=== PATIENT | female | born 1950 | race Caucasian/White ===

== ENCOUNTER 2016-11-16 04:48 | Inpatient (IN) | payer OTHER, MEDICARE ==
[~2016-11-16] VITALS: Ht 157.5 cm; Wt 77.8 kg
[2016-11-16] VITALS (11 sets, daily range): BP systolic 93–189; BP diastolic 51–89; PULSE 87–130; RESP 18–24; TEMP 98.3–103.1; O2SAT 89–100
[~2016-11-16 04:48] MED LIST: BENA25TA8 PO; CIME800T4 PO; CLON.5 PO; CYCL-36 PO; FISH120014 PO; FURO1TAB93 PO; KELP100T PO; LEVO112T2 PO; PRAV40TA2 PO; PRIL40CA PO; VITA500015 PO; VITA80005 PO
[2016-11-16] MEDS ORDERED: ACETAMINOPHEN 325 MG TAB PO ONE (05:30)
[2016-11-16] MEDS ORDERED: SODIUM CHLOR 0.9% 1000 ML INJ 1,000 ML IV ONE ×2 (05:30→07:00)
[2016-11-16] MEDS ORDERED: RESP: ALBUTEROL 2.5 MG/IPRATROPIUM 0.5 MG NEB (SCH) NEB ONE (05:45)
[2016-11-16] MEDS ORDERED: ONDANSETRON HCL 4 MG/2 ML VIAL IV ONE (05:45)
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
[2016-11-16] MEDS ORDERED: AZITHROMYCIN INJ 500 MG in SODIUM CHLOR 0.9% 250 ML INJ 250 ML IV ONE (06:00)
[2016-11-16] MEDS ORDERED: cefTRIAXone INJ 2,000 MG in SODIUM CHLORIDE 0.9% INJ 100 ML IV ONE (06:00)
--- NOTE | 2016-11-16 06:01 | RADRPT ---
EXAM DATE/TIME: 11/16/2016 05:32 [facility] COMPARISON: No previous studies available for comparison. INDICATIONS : Fever, cough. MEDICAL HISTORY : None. SURGICAL HISTORY : None. ENCOUNTER: Initial ACUITY: 2 days PAIN SCORE: Non-responsive. LOCATION: Bilateral chest FINDINGS: There is diffuse airspace process in right lung with slight perivascular process on the left. Heart a nd mediastinum are unremarkable for technique. CONCLUSION: Bilateral parenchymal process worse on the right and pulmonary edema and/or pneumonia should both be entertained. Cici Bradford MD on November 16, 2016 at 5:59 Board Certified Radiologist. This report was verified electronically.
[2016-11-16 06:20] LABS: AUTOMATED NEUTROPHIL # 7.8 TH/MM3 (1.8-7.7); BASOPHIL % 0.2 % (0.0-2.0); EOSINOPHIL # 0.2 TH/MM3 (0-0.4); EOSINOPHIL % 2.4 % (0.0-4.0); HEMATOCRIT 34.5 % (35.0-46.0); HEMO FLAGS DIFF FINAL; LYMPH % 11.8 % (9.0-44.0); LYMPHOCYTE # 1.1 TH/MM3 (1.0-4.8); MEAN CELL VOLUME 63.8 FL (80.0-100.0); MEAN CORPUSCULAR HEMOGLOBIN 20.2 PG (27.0-34.0); MEAN CORPUSCULAR HGB CONC 31.7 % (32.0-36.0); MONO % 3.5 % (0.0-8.0); NEUT % 82.1 % (16.0-70.0); PLATELET COUNT 272 TH/MM3 (150-450); RED BLOOD COUNT 5.41 MIL/MM3 (4.00-5.30); RED CELL DISTRIBUTION WIDTH 15.6 % (11.6-17.2); WHITE BLOOD COUNT 9.5 TH/MM3 (4.0-11.0)
--- NOTE | 2016-11-16 06:40 | RADRPT ---
EXAM DATE/TIME: 11/16/2016 06:31 [facility] COMPARISON: No previous studies available for comparison. INDICATIONS : Fever and left sided head pain. RADIATION DOSE: 33.12 CTDIvol (mGy) MEDICAL HISTORY : Hypertension. SURGICAL HISTORY : Cholecystectomy. Hysterectomy. ENCOUNTER: Initial ACUITY: 1 day PAIN SCALE: 5/10 LOCATION: Left cranial TECHNIQUE: Multiple contiguous axial images were obtained of the head. Using automated exposure control and adj ustment of the mA and/or kV according to patient size, radiation dose was kept as low as reasonably a chievable to obtain optimal diagnostic quality images. FINDINGS: There is no evidence for intracranial hemorrhage, mass effect, mass lesions, edema, or extra-axial fl uid collections. The visualized bony structures appear intact. The ventricles are normal size for t he patient's age. There are no signs of acute infarction for technique. CONCLUSION: Unremarkable study. Cici Bradford MD on November 16, 2016 at 6:38 Board Certified Radiologist. This report was verified electronically.
[2016-11-16 06:50] LABS: ALT (GPT) 28 U/L (10-53); ANION GAP 9 MEQ/L (5-15); AST (GOT) 34 U/L (15-37); BICARBONATE 27.3 MEQ/L (21.0-32.0); BLOOD UREA NITROGEN 26 MG/DL (7-18); CHLORIDE 108 MEQ/L (98-107); GLOMERULAR FILTRATION RATE 60 ML/MIN (>89); MAGNESIUM 1.8 MG/DL (1.5-2.5); POTASSIUM 4.1 MEQ/L (3.5-5.1); SODIUM (NA) 144 MEQ/L (136-145)
[2016-11-16 06:52] LABS: ALKALINE PHOSPHATASE 51 U/L (45-117); TOTAL BILIRUBIN ADULT 0.7 MG/DL (0.2-1.0)
[2016-11-16 06:52] LABS: BACTERIA, URINE RARE /hpf; BLOOD, URINE NEG (NEG); GLUCOSE,URINE NEG (NEG); HYALINE CAST, URINE 4 /lpf (RARE); KETONE, URINE NEG (NEG); MUCUS URINE FEW /lpf (OCC); NITRITE,URINE NEG (NEG); PH, URINE 5.5 (5.0-8.5); URINE COLOR YELLOW (YELLW/STRAW)
[2016-11-16 06:53] LABS: COMMENT (UR) CULT NOT INDICATED; CULTURE IF INDICATED CULT NOT INDICATED
[2016-11-16] MEDS ORDERED: CYCL1TAB29 PO (06:59)
[2016-11-16] MEDS ORDERED: CLON.5 PO (06:59)
[2016-11-16] MEDS ORDERED: PRIL20CA9 PO (06:59)
[2016-11-16] MEDS ORDERED: LEVO125T4 PO (06:59)
[2016-11-16] MEDS ORDERED: PRAV40TA2 PO (06:59)
[2016-11-16] MEDS ORDERED: CIME200T23 PO (06:59)
[2016-11-16] MEDS ORDERED: VITA80005 PO (06:59)
[2016-11-16] MEDS ORDERED: CHOL50008 PO (06:59)
[2016-11-16] MEDS ORDERED: SODIUM CHLOR 0.9% 250 ML INJ 250 ML IV ONE (07:00)
[2016-11-16 07:23] LABS: CREATINE KINASE 114 U/L (26-192)
[2016-11-16 07:36] LABS: CKMB 4.3 NG/ML (0.5-3.6)
[2016-11-16 08:13] LABS: LACTIC ACID GHOST NOT REPORTABLE
[2016-11-16] MEDS ORDERED: NALOXONE HCL 0.4 MG/ML AMP IV PRN (08:15)
[2016-11-16] MEDS ORDERED: SODIUM CHLORIDE 0.9% FLUSH 10 ML FLUSH IV FLUSH PRN (08:15)
[2016-11-16] MEDS ORDERED: ACETAMINOPHEN 325 MG TAB PO PRN (08:15)
[2016-11-16] MEDS ORDERED: VITAMIN A 8000 UNIT PO SCH (09:00)
[2016-11-16] MEDS: SODIUM CHLORIDE 0.9% FLUSH 10 ML FLUSH IV FLUSH SCH ×2 (09:00→21:36)
--- NOTE | 2016-11-16 11:14 | HHI.HP ---
HPI Service [facility] Primary Care Physician Unknown Admission Diagnosis Pneumonia, Sepsis Diagnoses: Chief Complaint: Sepsis, pneumonia, encephalopathy Travel History International Travel<30 Days: No Contact w/Intl Traveler <30 Da: No Traveled to Known Affected Are: No Sepsis Criteria SIRS Criteria (2 or more): Temp > 100.9 or < 96.8, Heart rate over 90, RR > 20 or PaCO2 < 32 Sepsis Criteria (SIRS+source): Infect source susp/known History of Present Illness 66-year-old female with a medical history significant for hypertension, GERD, hypothyroidism, chronic neck and back pain, beta thalassemia present to the emergency room with complaint of fever for the past couple of days. The patient is currently encephalopathy can confused. She is not sure why she is in the hospital but can corroborate some of the history I reviewed with her from the EMR. According to her son, she has been feeling off for the past couple of days with congestion. Patient reports she started coughing today. Her temperature was 103 in the emergency room. The patient's is currently in the hospital undergoing a hip repair for fracture. Patient is fixated that she needs to get out of the hospitals she can take care of her . She is intermittently confused. Initial workup in the emergency room found the patient to be hypoxemic on room air. Chest x-ray consistent with pneumonia. Patient is being admitted for sepsis due to pneumonia, hypoxemia and encephalopathy. Review of Systems ROS Limitations: Clinical Condition, Altered Mental Status, Poor Historian Constitutional: COMPLAINS OF: Fever, Chills Eyes: DENIES: Vision loss Respiratory: COMPLAINS OF: Cough, Shortness of breath Cardiovascular: DENIES: Chest pain, Palpitations, Syncope Gastrointestinal: COMPLAINS OF: Nausea, DENIES: Vomiting Musculoskeletal: COMPLAINS OF: Back pain, Neck pain Integumentary: DENIES: Rash Neurologic: COMPLAINS OF: Headache Psychiatric: COMPLAINS OF: Confusion Past Family Social History Past Medical History hypertension, GERD, chronic neck and back pain, beta thalassemia Past Surgical History Cholecystectomy cervical spine fusion hysterectomy right knee surgery Reported Medications Reported Meds & Active Scripts Active Reported Vitamin D3 (Cholecalciferol) 5,000 Unit Tab 5,000 Units PO DAILY Vitamin A 8,000 Unit Tab 8,000 Units PO DAILY Pravastatin 40 Mg Tab 40 Mg PO DAILY Prilosec (Omeprazole) 20 Mg Cap 40 Mg PO BID Levothyroxine (Levothyroxine Sodium) 125 Mcg Tab 125 Mcg PO DAILY Flexeril (Cyclobenzaprine HCl) 10 Mg Tab 10 Mg PO TID Klonopin (Clonazepam) 0.5 Mg Tab 0.5 Mg PO BID Tagamet Hb (Cimetidine) 200 Mg Tab 800 Mg PO BID Allergies: Coded Allergies: Nonsteroidal Anti-Inflammatory Agts (Verified Allergy, Severe, SWELLING, DIFFICULTY BREATHING, 11/16/16) Sulfa (Verified Allergy, Severe, BLISTERS, 11/16/16) Uncoded Allergies: STEROIDS (Adverse Reaction, Intermediate, INCREASED AGITATION AND AGGRESSIVENESS, 07/03/14) Family History Reviewed and noncontributory. Social History Patient denies tobacco use. She admits to occasional alcohol, denies illicit drug use. Physical Exam Vital Signs Vital Signs Date Time Temp Pulse Resp B/P Pulse Ox O2 Delivery O2 Flow Rate FiO2 11/16/16 09:33 106 20 99/55 98 Nasal Cannula 2 11/16/16 08:50 Nasal Cannula 2 11/16/16 08:07 94 21 11/16/16 08:00 114 22 107/51 95 Room Air 11/16/16 07:40 22 11/16/16 07:29 101.3 120 22 120/65 94 Room Air 11/16/16 06:31 102.9 130 24 129/67 98 Room Air 11/16/16 04:56 103.1 122 22 189/89 89 Physical Exam GENERAL: Patient is lethargic and confused SKIN: No rashes, ecchymoses or lesions. Cool and dry. HEAD: Atraumatic. Normocephalic. No temporal or scalp tenderness. EYES: Pupils equal round and reactive. Extraocular motions intact. No scleral icterus. No injection or drainage. ENT: Nose without bleeding, purulent drainage or septal hematoma. Throat without erythema, tonsillar hypertrophy or exudate. Uvula midline. Airway patent. NECK: Trachea midline. No JVD or lymphadenopathy. Supple, nontender, no meningeal signs. CARDIOVASCULAR: Regular rate and rhythm without murmurs, gallops, or rubs. RESPIRATORY: Diffuse rhonchi bilaterally. No wheezing. Wet cough. GASTROINTESTINAL: Abdomen soft, non-tender, nondistended. No hepato-splenomegaly , or palpable masses. No guarding. MUSCULOSKELETAL: Extremities without clubbing, cyanosis, or edema. No joint tenderness, effusion, or edema noted. No calf tenderness. Negative Homans sign bilaterally. NEUROLOGICAL: Awake, alert, but confused. Generalized weakness. Normal speech. Laboratory Laboratory Tests Test 11/16/16 11/16/16 11/16/16 11/16/16 05:30 06:00 06:20 08:50 White Blood Count 9.5 Red Blood Count 5.41 Hemoglobin 10.9 Hematocrit 34.5 Mean Corpuscular Volume 63.8 Mean Corpuscular Hemoglobin 20.2 Mean Corpuscular Hemoglobin 31.7 Concent Red Cell Distribution Width 15.6 Platelet Count 272 Mean Platelet Volume 10.2 Neutrophils (%) (Auto) 82.1 Lymphocytes (%) (Auto) 11.8 Monocytes (%) (Auto) 3.5 Eosinophils (%) (Auto) 2.4 Basophils (%) (Auto) 0.2 Neutrophils # (Auto) 7.8 Lymphocytes # (Auto) 1.1 Monocytes # (Auto) 0.3 Eosinophils # (Auto) 0.2 Basophils # (Auto) 0.0 CBC Comment DIFF FINAL Differential Comment Sodium Level 144 Potassium Level 4.1 Chloride Level 108 Carbon Dioxide Level 27.3 Anion Gap 9 Blood Urea Nitrogen 26 Creatinine 0.94 Estimat Glomerular Filtration 60 Rate Random Glucose 107 Lactic Acid Level 2.6 1.6 Calcium Level 10.0 Magnesium Level 1.8 Total Bilirubin 0.7 Aspartate Amino Transf 34 (AST/SGOT) Alanine Aminotransferase 28 (ALT/SGPT) Alkaline Phosphatase 51 C-Reactive Protein 2.37 Total Protein 8.5 Albumin 4.0 Urine Color YELLOW Urine Turbidity CLEAR Urine pH 5.5 Urine Specific [place] 1.021 Urine Protein NEG Urine Glucose (UA) NEG Urine Ketones NEG Urine Occult Blood NEG Urine Nitrite NEG Urine Bilirubin NEG Urine Urobilinogen LESS THAN 2.0 Urine Leukocyte Esterase NEG Urine RBC 1 Urine WBC 1 Urine Bacteria RARE Urine Hyaline Casts 4 Urine Mucus FEW Microscopic Urinalysis Comment CULT NOT INDICATED Total Creatine Kinase 114 Creatine Kinase MB 4.3 Troponin I LESS THAN 0.02 B-Type Natriuretic Peptide 19 Date/Time Procedure Status Source Growth 11/16/16 06:00 Influenza Types A,B Antigen (JEANETTE) - Final Complete Nasal Aspirate NEGATIVE FOR FLU A AND B ANTIGEN.... 11/16/16 05:35 Aerobic Blood Culture Received Blood Peripheral Pending 11/16/16 05:35 Anaerobic Blood Culture Received Blood Peripheral Pending Result Diagram: 11/16/16 0530 11/16/16 0530 Imaging Last Impressions Chest X-Ray 11/16/16 0526 Signed Impressions: Service Date/Time: Wednesday, November 16, 2016 05:32 - CONCLUSION: Bilateral parenchymal process worse on the right and pulmonary edema and/or pneumonia should both be entertained. Cici Bradfodr MD Head CT 11/16/16 0000 Signed Impressions: Service Date/Time: Wednesday, November 16, 2016 06:31 - CONCLUSION: Unremarkable study. Cici Bradford MD Assessment and Plan Problem List: (1) Sepsis ICD Code: A41.9 Status: Acute Plan: Sepsis secondary to pneumonia - IV antibiotics with Rocephin and oral azithromycin - IV fluids (2) Pneumonia ICD Code: J18.9 Status: Acute Plan: Chest x-ray image reviewed by me and concur with radiologist read. Bilateral parenchymal process. Based on the clinical picture, more consistent with pneumonia aerated and CHF. - Antibiotics as above - Supple oxygen - Incentive spirometry (3) Acute encephalopathy ICD Code: G93.40 Status: Acute Plan: Likely related to sepsis/pneumonia. Adverse effects from medications also possibility. I note the patient home medications include Klonopin and Flexeril. Head CT unremarkable. No focal neurological deficits. - Treated for sepsis as above. Hold Klonopin and Flexeril. Neurochecks. Monitor for rapid improvement. (4) Hypothyroidism ICD Code: E03.9 Status: Acute Plan: Continue Synthroid. Check TSH (5) Chronic neck and back pain ICD Code: M54.2 Status: Acute Plan: Given encephalopathy. Hold Flexeril. Tylenol as needed. Oxycodone for breakthrough pain. (6) GERD (gastroesophageal reflux disease) ICD Code: K21.9 Status: Acute Plan: Continue PPI (7) Hyperlipidemia ICD Code: E78.5 Status: Acute Plan: Continue statin. (8) Beta thalassemia ICD Code: D56.1 Status: Chronic Plan: Stable. Code Status Full Discussed Condition With RN. Physician Certification 2 Midnight Certification Type: Admission for Inpatient Services Order for Inpatient Services The services are ordered in accordance with Medicare regulations or non- Medicare payer requirements, as applicable. In the case of services not specified as inpatient-only, they are appropriately provided as inpatient services in accordance with the 2-midnight benchmark. Estimated LOS (days): 3 days is the estimated time the patient will need to remain in the hospital, assuming treatment plan goals are met and no additional complications. Post-Hospital Plan: Home Problem Qualifiers (1) Sepsis: Qualified Code: A41.9 - Sepsis, due to unspecified organism (2) Pneumonia: Qualified Code: J18.9 - Pneumonia of both lungs due to infectious organism, unspecified part of lung Kathy Noble MD November 16, 2016 11:07
[2016-11-16] MEDS: PANTOPRAZOLE SOD 40 MG DELAYED RELEASE TAB PO SCH ×2 (11:50→21:36)
[2016-11-16] MEDS: DEXT 5%-NACL 0.45% 1000 ML INJ 1,000 ML IV SCH ×2 (11:50→21:36)
[2016-11-16] MEDS: PRAVASTATIN SOD 40 MG TAB PO SCH (11:50)
[2016-11-16] MEDS: FAMOTIDINE 20 MG TAB PO SCH ×2 (11:57→21:36)
[2016-11-16] MEDS: LEVOTHYROXINE SODIUM 125 MCG TAB PO SCH (12:18)
[2016-11-16] MEDS: CHOLECALCIFEROL (VIT D3) 5000 UNIT CAP PO SCH (12:20)
[2016-11-16] MEDS: HEPARIN SODIUM - SQ 10,000 UNITS/ML VIAL SQ SCH ×2 (12:22→21:36)
--- NOTE | 2016-11-16 15:12 | EKG ---
Date Performed: 11/16/2016 Time Performed: 05:50:02 PTAGE: 66 years EKG: SINUS TACHYCARDIA BORDERLINE LEFT AXIS DEVIATION LOW QRS VOLTAGE IN PRECORDIAL LEADS INCOMP LETE RIGHT BUNDLE BRANCH BLOCK ST DEVIATION AND MODERATE T-WAVE ABNORMALITY, CONSIDER ANTERIOR ISCHEM IA ABNORMAL ECG Compared to prior tracing no significant change PREVIOUS TRACING : 07/04/2014 10.51 DOCTOR: Gen Jeffers Interpretating Date/Time 11/16/2016 15:11:38
[2016-11-16] MEDS: ACETAMINOPHEN 325 MG TAB PO PRN (15:29)
[2016-11-17] VITALS (10 sets, daily range): BP systolic 91–129; BP diastolic 51–67; PULSE 77–102; RESP 16–20; TEMP 98–100.7; O2SAT 92–100
[2016-11-17] MEDS: cefTRIAXone INJ 2,000 MG in SODIUM CHLORIDE 0.9% INJ 100 ML IV SCH (06:02)
[2016-11-17] MEDS: AZITHROMYCIN 250 MG TAB PO SCH (06:02)
[2016-11-17] MEDS: LEVOTHYROXINE SODIUM 125 MCG TAB PO SCH (06:02)
[2016-11-17 06:23] LABS: AUTOMATED NEUTROPHIL # 10.2 TH/MM3 (1.8-7.7); BASOPHIL % 0.3 % (0.0-2.0); EOSINOPHIL # 0.4 TH/MM3 (0-0.4); EOSINOPHIL % 2.5 % (0.0-4.0); HEMATOCRIT 23.3 % (35.0-46.0); HEMO FLAGS DIFF FINAL; LYMPHOCYTE # 2.7 TH/MM3 (1.0-4.8); MEAN CELL VOLUME 64.3 FL (80.0-100.0); MEAN CORPUSCULAR HEMOGLOBIN 19.8 PG (27.0-34.0); MEAN CORPUSCULAR HGB CONC 30.9 % (32.0-36.0); MONO % 6.6 % (0.0-8.0); NEUT % 71.6 % (16.0-70.0); PLATELET COUNT 172 TH/MM3 (150-450); RED BLOOD COUNT 3.63 MIL/MM3 (4.00-5.30); RED CELL DISTRIBUTION WIDTH 15.8 % (11.6-17.2); WHITE BLOOD COUNT 14.3 TH/MM3 (4.0-11.0)
[2016-11-17] MEDS: DEXT 5%-NACL 0.45% 1000 ML INJ 1,000 ML IV SCH ×3 (06:23→20:11)
[2016-11-17 07:02] LABS: BICARBONATE 25.9 MEQ/L (21.0-32.0); POTASSIUM 3.6 MEQ/L (3.5-5.1)
[2016-11-17] MEDS: ACETAMINOPHEN 325 MG TAB PO PRN ×4 (07:16→20:12)
[2016-11-17] MEDS: PANTOPRAZOLE SOD 40 MG DELAYED RELEASE TAB PO SCH ×2 (08:21→20:10)
[2016-11-17] MEDS: PRAVASTATIN SOD 40 MG TAB PO SCH (08:21)
[2016-11-17] MEDS: FAMOTIDINE 20 MG TAB PO SCH ×2 (08:21→20:10)
[2016-11-17] MEDS: CHOLECALCIFEROL (VIT D3) 5000 UNIT CAP PO SCH (08:21)
[2016-11-17] MEDS: SODIUM CHLORIDE 0.9% FLUSH 10 ML FLUSH IV FLUSH SCH ×2 (08:22→20:10)
[2016-11-17] MEDS: HEPARIN SODIUM - SQ 10,000 UNITS/ML VIAL SQ SCH ×2 (08:22→20:08)
--- NOTE | 2016-11-17 09:32 | HHI.PR ---
Subjective Remarks Patient seen in follow-up for sepsis secondary to pneumonia. She reports she is feeling a little better. Still having a significant cough with headaches, on 2 L nasal cannula. Maximum temperature overnight 100.7. She is now awake, alert, and oriented. Objective Vitals Vital Signs Date Time Temp Pulse Resp B/P Pulse Ox O2 Delivery O2 Flow Rate FiO2 11/17/16 08:15 99.1 90 18 105/51 98 11/17/16 07:01 92 11/17/16 03:00 98.5 86 20 91/52 94 11/17/16 00:00 100.7 102 18 115/67 92 11/16/16 20:00 98.3 87 18 102/57 100 11/16/16 16:30 98.6 87 18 104/57 98 11/16/16 14:24 99.3 86 18 95/55 97 2 11/16/16 12:03 93 18 93/55 95 Nasal Cannula 3 11/16/16 11:00 99.1 106 18 102/53 95 Nasal Cannula 2 11/16/16 09:33 106 20 99/55 98 Nasal Cannula 2 I/O 11/16/16 11/16/16 11/16/16 11/17/16 11/17/16 11/17/16 07:00 15:00 23:00 07:00 15:00 23:00 Intake Total 834 ml 1581 ml Output Total 350 ml Balance 484 ml 1581 ml Intake Oral 240 ml 480 ml IV Total 594 ml 1101 ml Output Urine Total 350 ml # Voids 2 1 # Bowel Movements 0 Result Diagram: 11/17/16 0555 11/17/16 0555 Imaging Last Impressions Chest X-Ray 11/16/16 0526 Signed Impressions: Service Date/Time: Wednesday, November 16, 2016 05:32 - CONCLUSION: Bilateral parenchymal process worse on the right and pulmonary edema and/or pneumonia should both be entertained. Cici Bradford MD Head CT 11/16/16 0000 Signed Impressions: Service Date/Time: Wednesday, November 16, 2016 06:31 - CONCLUSION: Unremarkable study. Cici Bradford MD Objective Remarks GENERAL: This is a well-nourished, well-developed patient, in no apparent distress. CARDIOVASCULAR: Normal rate and regular rhythm without murmurs, gallops, or rubs. RESPIRATORY: Good respiratory efforts. Spasmatic cough. Diffuse rhonchi bilaterally. No wheezing. GASTROINTESTINAL: Abdomen soft, non-tender, non-distended. Normal active bowel sounds MUSCULOSKELETAL: Extremities without cyanosis, or edema. NEURO: Alert & Oriented x4 to person, place, time, situation. Moves all ext x4 PSYCH: Appropriate mood and affect. A/P Problem List: (1) Sepsis ICD Code: A41.9 Status: Acute Plan: Sepsis secondary to pneumonia: -Continue IV antibiotics with Rocephin and oral azithromycin - IV fluids Follow blood cultures (2) Pneumonia ICD Code: J18.9 Status: Acute Plan: Chest x-ray image reviewed by me and concur with radiologist read. Bilateral parenchymal process. Based on the clinical picture, more consistent with pneumonia rather than CHF. - Antibiotics as above - Supple oxygen - Incentive spirometry Urinary legionella and strep pneumo antigens negative (3) Acute encephalopathy ICD Code: G93.40 Status: Acute Plan: Resolved. Likely related to sepsis/pneumonia. Adverse effects from medications also possibility. I note the patient home medications include Klonopin and Flexeril. Head CT unremarkable. No focal neurological deficits. - Treated for sepsis as above. Continue to hold Klonopin and Flexeril. - Order Tylenol as needed for headache. (4) Hypothyroidism ICD Code: E03.9 Status: Acute Plan: Continue Synthroid. (5) Chronic neck and back pain ICD Code: M54.2 Status: Acute Plan: Given encephalopathy. Hold Flexeril. Tylenol as needed. Oxycodone for breakthrough pain. (6) GERD (gastroesophageal reflux disease) ICD Code: K21.9 Status: Acute Plan: Continue PPI (7) Hyperlipidemia ICD Code: E78.5 Status: Acute Plan: Continue statin. (8) Beta thalassemia ICD Code: D56.1 Status: Chronic Plan: H&H trended down this AM. No active bleeding. We'll continue to monitor Discharge Planning Continue inpatient treatment. Anticipated discharge in 1-2 days if she improves quickly. Problem Qualifiers (1) Sepsis: Qualified Code: A41.9 - Sepsis, due to unspecified organism (2) Pneumonia: Qualified Code: J18.9 - Pneumonia of both lungs due to infectious organism, unspecified part of lung Kathy Noble MD November 17, 2016 09:32
[2016-11-17] MEDS ORDERED: PNEUMOCOCCAL POLYVALENT INJ 25 MCG/0.5 ML SYR IM ONE (10:00)
[2016-11-17] MEDS: ONDANSETRON HCL 4 MG/2 ML VIAL IVP PRN (20:09)
[2016-11-18] VITALS (8 sets, daily range): BP systolic 116–146; BP diastolic 56–67; PULSE 84–110; RESP 16–18; TEMP 98.3–99.2; O2SAT 92–95
[2016-11-18] MEDS: ONDANSETRON HCL 4 MG/2 ML VIAL IVP PRN (01:50)
[2016-11-18] MEDS: LEVOTHYROXINE SODIUM 125 MCG TAB PO SCH (05:09)
[2016-11-18] MEDS: AZITHROMYCIN 250 MG TAB PO SCH (05:10)
[2016-11-18] MEDS: cefTRIAXone INJ 2,000 MG in SODIUM CHLORIDE 0.9% INJ 100 ML IV SCH (05:10)
[2016-11-18] MEDS ORDERED: ACETAMIN 325 MG/BUTALBITAL 50 MG/CAFFEINE 40 MG TAB PO ONE (05:45)
[2016-11-18] MEDS ORDERED: PROCHLORPERAZINE INJ 10 MG/2 ML VIAL IV PUSH ONE (05:45)
[2016-11-18 07:42] LABS: HEMATOCRIT 22.7 % (35.0-46.0); MEAN CELL VOLUME 63.7 FL (80.0-100.0); MEAN CORPUSCULAR HEMOGLOBIN 19.6 PG (27.0-34.0); MEAN CORPUSCULAR HGB CONC 30.8 % (32.0-36.0); PLATELET COUNT 169 TH/MM3 (150-450); RED BLOOD COUNT 3.56 MIL/MM3 (4.00-5.30); RED CELL DISTRIBUTION WIDTH 15.6 % (11.6-17.2); REVIEW FLAG FINAL; WHITE BLOOD COUNT 12.4 TH/MM3 (4.0-11.0)
[2016-11-18 08:05] LABS: BICARBONATE 25.8 MEQ/L (21.0-32.0); POTASSIUM 3.9 MEQ/L (3.5-5.1)
[2016-11-18] MEDS: FAMOTIDINE 20 MG TAB PO SCH ×2 (08:37→21:14)
[2016-11-18] MEDS: PRAVASTATIN SOD 40 MG TAB PO SCH (08:37)
[2016-11-18] MEDS: PANTOPRAZOLE SOD 40 MG DELAYED RELEASE TAB PO SCH ×2 (08:37→21:14)
[2016-11-18] MEDS: SODIUM CHLORIDE 0.9% FLUSH 10 ML FLUSH IV FLUSH SCH ×2 (08:38→21:14)
[2016-11-18] MEDS: HEPARIN SODIUM - SQ 10,000 UNITS/ML VIAL SQ SCH ×2 (08:39→21:13)
[2016-11-18] MEDS: CHOLECALCIFEROL (VIT D3) 5000 UNIT CAP PO SCH ×3 (08:39→13:16)
--- NOTE | 2016-11-18 11:51 | HHI.PR ---
Subjective Remarks Patient reports persistent headache this morning. Cough is slightly better. Still on oxygen. She reports improvement overall. Objective Vitals Vital Signs Date Time Temp Pulse Resp B/P Pulse Ox O2 Delivery O2 Flow Rate FiO2 11/18/16 08:00 98.3 92 16 127/62 93 11/18/16 04:34 98.3 84 18 116/58 95 11/17/16 23:00 98.1 77 16 121/58 100 11/17/16 20:00 98.0 79 18 126/57 98 11/17/16 20:00 83 11/17/16 18:33 98.2 87 20 120/58 98 11/17/16 15:01 98.6 88 18 129/66 97 11/17/16 13:01 20 I/O 11/17/16 11/17/16 11/17/16 11/18/16 11/18/16 11/18/16 07:00 15:00 23:00 07:00 15:00 23:00 Intake Total 1581 ml 1140 ml 600 ml Output Total 300 ml Balance 1581 ml 840 ml 600 ml Intake Oral 480 ml 240 ml 600 ml IV Total 1101 ml 900 ml Output Urine Total 300 ml # Voids 1 2 3 # Bowel Movements 0 0 Result Diagram: 11/18/16 0605 11/18/16 0605 Imaging Last Impressions Chest X-Ray 11/16/16 0526 Signed Impressions: Service Date/Time: Wednesday, November 16, 2016 05:32 - CONCLUSION: Bilateral parenchymal process worse on the right and pulmonary edema and/or pneumonia should both be entertained. Cici Bradford MD Head CT 11/16/16 0000 Signed Impressions: Service Date/Time: Wednesday, November 16, 2016 06:31 - CONCLUSION: Unremarkable study. Cici Bradford MD Objective Remarks GENERAL: This is a well-nourished, well-developed patient, in no apparent distress. CARDIOVASCULAR: Normal rate and regular rhythm without murmurs, gallops, or rubs. RESPIRATORY: Good respiratory efforts. Spasmatic cough. Diffuse rhonchi bilaterally. No wheezing. GASTROINTESTINAL: Abdomen soft, non-tender, non-distended. Normal active bowel sounds MUSCULOSKELETAL: Extremities without cyanosis, or edema. NEURO: Alert & Oriented x4 to person, place, time, situation. Moves all ext x4 PSYCH: Appropriate mood and affect. A/P Problem List: (1) Sepsis ICD Code: A41.9 Status: Acute Plan: Sepsis secondary to pneumonia: Resolving -Transition to oral cefuroxime. Continue oral azithromycin Discontinue IV fluid Blood cultures so far negative. (2) Pneumonia ICD Code: J18.9 Status: Acute Plan: Chest x-ray image reviewed by me and concur with radiologist read. Bilateral parenchymal process. Based on the clinical picture, more consistent with pneumonia rather than CHF. - Antibiotics as above - Supple oxygen - Incentive spirometry Urinary legionella and strep pneumo antigens negative (3) Acute encephalopathy ICD Code: G93.40 Status: Acute Plan: Resolved. Likely related to sepsis/pneumonia. Adverse effects from medications also possibility. I note the patient home medications include Klonopin and Flexeril. Head CT unremarkable. No focal neurological deficits. - Treated for sepsis as above. Continue to hold Klonopin and Flexeril. -We'll try triptan in and naproxen for headache. Patient reports a remote history of migraine. (4) Hypothyroidism ICD Code: E03.9 Status: Acute Plan: Continue Synthroid. (5) Chronic neck and back pain ICD Code: M54.2 Status: Acute Plan: Given encephalopathy. Hold Flexeril. Tylenol as needed. Oxycodone for breakthrough pain. (6) GERD (gastroesophageal reflux disease) ICD Code: K21.9 Status: Acute Plan: Continue PPI (7) Hyperlipidemia ICD Code: E78.5 Status: Acute Plan: Continue statin. (8) Beta thalassemia ICD Code: D56.1 Status: Chronic Plan: H&H trended down this AM. No active bleeding. We'll continue to monitor Discharge Planning Continue inpatient treatment. Anticipated discharge in 1-2 days if she improves quickly. Problem Qualifiers (1) Sepsis: Qualified Code: A41.9 - Sepsis, due to unspecified organism (2) Pneumonia: Qualified Code: J18.9 - Pneumonia of both lungs due to infectious organism, unspecified part of lung Kathy Noble MD November 18, 2016 11:51
[2016-11-18] MEDS ORDERED: SUMAtriptan SUCCINATE 50 MG TAB PO PRN (12:00)
[2016-11-18] MEDS ORDERED: NAPROXEN 500 MG TAB PO ONE (12:00)
[2016-11-18] MEDS: FLUTICASONE PROPIONATE 50 MCG/ACT 16 GM NASAL SPRAY NASAL SCH ×2 (13:15→21:00)
[2016-11-19] VITALS: BP 104/66; PULSE 97; RESP 16; TEMP 98.9; O2SAT 96
[2016-11-19] MEDS ORDERED: ALPRAZolam 0.25 MG TAB PO PRN (04:45)
[2016-11-19] MEDS: LEVOTHYROXINE SODIUM 125 MCG TAB PO SCH (04:53)
[2016-11-19 05:32] VITALS: BP 159/73; PULSE 99; RESP 22; TEMP 99.2; O2SAT 95
[2016-11-19] MEDS: AZITHROMYCIN 250 MG TAB PO SCH (06:14)
[2016-11-19 07:51] LABS: HEMATOCRIT 24.5 % (35.0-46.0); MEAN CELL VOLUME 62.7 FL (80.0-100.0); MEAN CORPUSCULAR HEMOGLOBIN 19.9 PG (27.0-34.0); MEAN CORPUSCULAR HGB CONC 31.7 % (32.0-36.0); PLATELET COUNT 216 TH/MM3 (150-450); RED CELL DISTRIBUTION WIDTH 15.6 % (11.6-17.2); REVIEW FLAG FINAL
[2016-11-19 08:00] VITALS: PULSE 90
[2016-11-19] MEDS: CHOLECALCIFEROL (VIT D3) 5000 UNIT CAP PO SCH (08:31)
[2016-11-19] MEDS: PRAVASTATIN SOD 40 MG TAB PO SCH (08:31)
[2016-11-19] MEDS: PANTOPRAZOLE SOD 40 MG DELAYED RELEASE TAB PO SCH (08:31)
[2016-11-19] MEDS: FAMOTIDINE 20 MG TAB PO SCH (08:31)
[2016-11-19] MEDS: FLUTICASONE PROPIONATE 50 MCG/ACT 16 GM NASAL SPRAY NASAL SCH (08:32)
[2016-11-19] MEDS: SODIUM CHLORIDE 0.9% FLUSH 10 ML FLUSH IV FLUSH SCH (08:32)
[2016-11-19] MEDS: HEPARIN SODIUM - SQ 10,000 UNITS/ML VIAL SQ SCH (08:33)
[2016-11-19 09:00] VITALS: BP 148/72; PULSE 95; RESP 18; TEMP 98.9; O2SAT 97
[2016-11-19] MEDS ORDERED: CEFUROXIME AXETIL 500 MG TAB PO SCH (09:00)
[2016-11-19 12:10] VITALS: BP 161/76; PULSE 96; RESP 18; TEMP 98.6; O2SAT 96
[2016-11-19 13:08] VITALS: O2SAT 94
[2016-11-19] MEDS ORDERED: AZIT250T3 PO (14:00)
[2016-11-19] MEDS ORDERED: CEFU1TAB20 PO (14:00)
--- NOTE | 2016-11-19 14:01 | HHI.DCPOC ---
Discharge Care Plan Diagnosis: (1) Acute encephalopathy (2) Sepsis (3) Pneumonia (4) GERD (gastroesophageal reflux disease) (5) Beta thalassemia (6) HTN (hypertension) Goals to Promote Your Health * To prevent worsening of your condition and complications * To maintain your health at the optimal level Directions to Meet Your Goals Take your medications as prescribed Follow your dietary instruction Follow activity as directed Keep your appointments as scheduled Take your immunizations and boosters as scheduled If your symptoms worsen call your PCP, if no PCP go to Urgent Care Center or Emergency Room Smoking is Dangerous to Your Health. Avoid second hand smoke Call the 24-hour hour crisis hotline for domestic abuse at Kathy Noble MD November 19, 2016 14:01
--- NOTE | 2016-11-19 14:02 | HHI.DS ---
Discharge Summary Admission Date November 16, 2016 at 07:45 Discharge Date: November 19, 2016 Admitting Diagnosis Pneumonia, Sepsis (1) Sepsis ICD Code: A41.9 (2) Pneumonia ICD Code: J18.9 (3) Acute encephalopathy ICD Code: G93.40 (4) Hypothyroidism ICD Code: E03.9 (5) Chronic neck and back pain ICD Code: M54.2 (6) GERD (gastroesophageal reflux disease) ICD Code: K21.9 (7) Hyperlipidemia ICD Code: E78.5 (8) Beta thalassemia ICD Code: D56.1 Procedures None Brief History - From Admission 66-year-old female with a medical history significant for hypertension, GERD, hypothyroidism, chronic neck and back pain, beta thalassemia present to the emergency room with complaint of fever for the past couple of days. The patient is currently encephalopathy can confused. She is not sure why she is in the hospital but can corroborate some of the history I reviewed with her from the EMR. According to her son, she has been feeling off for the past couple of days with congestion. Patient reports she started coughing today. Her temperature was 103 in the emergency room. The patient's is currently in the hospital undergoing a hip repair for fracture. Patient is fixated that she needs to get out of the hospitals she can take care of her . She is intermittently confused. Initial workup in the emergency room found the patient to be hypoxemic on room air. Chest x-ray consistent with pneumonia. Patient is being admitted for sepsis due to pneumonia, hypoxemia and encephalopathy. CBC/BMP: 11/19/16 0708 11/18/16 0605 Significant Findings Laboratory Tests Test 11/17/16 11/18/16 11/19/16 05:55 06:05 07:08 White Blood Count 14.3 TH/MM3 12.4 TH/MM3 (4.0-11.0) (4.0-11.0) Red Blood Count 3.63 MIL/MM3 3.56 MIL/MM3 3.90 MIL/MM3 (4.00-5.30) (4.00-5.30) (4.00-5.30) Hemoglobin 7.2 GM/DL 7.0 GM/DL 7.8 GM/DL (11.6-15.3) (11.6-15.3) (11.6-15.3) Hematocrit 23.3 % 22.7 % 24.5 % (35.0-46.0) (35.0-46.0) (35.0-46.0) Mean Corpuscular Volume 64.3 FL 63.7 FL 62.7 FL (80.0-100.0) (80.0-100.0) (80.0-100.0) Mean Corpuscular Hemoglobin 19.8 PG 19.6 PG 19.9 PG (27.0-34.0) (27.0-34.0) (27.0-34.0) Mean Corpuscular Hemoglobin 30.9 % 30.8 % 31.7 % Concent (32.0-36.0) (32.0-36.0) (32.0-36.0) Neutrophils (%) (Auto) 71.6 % (16.0-70.0) Neutrophils # (Auto) 10.2 TH/MM3 (1.8-7.7) Chloride Level 108 MEQ/L 108 MEQ/L (98-107) (98-107) Estimat Glomerular Filtration 72 ML/MIN (>89) Rate Random Glucose 113 MG/DL (74-106) Calcium Level 8.2 MG/DL 8.4 MG/DL (8.5-10.1) (8.5-10.1) Blood Urea Nitrogen 4 MG/DL (7-18) Imaging Last Impressions Chest X-Ray 11/16/16 0526 Signed Impressions: Service Date/Time: Wednesday, November 16, 2016 05:32 - CONCLUSION: Bilateral parenchymal process worse on the right and pulmonary edema and/or pneumonia should both be entertained. Cici Bradford MD Head CT 11/16/16 0000 Signed Impressions: Service Date/Time: Wednesday, November 16, 2016 06:31 - CONCLUSION: Unremarkable study. Cici Bradford MD PE at Discharge GENERAL: This is a well-nourished, well-developed patient, in no apparent distress. CARDIOVASCULAR: Normal rate and regular rhythm without murmurs, gallops, or rubs. RESPIRATORY: Good respiratory efforts. Spasmatic cough. Diffuse rhonchi bilaterally. No wheezing. GASTROINTESTINAL: Abdomen soft, non-tender, non-distended. Normal active bowel sounds MUSCULOSKELETAL: Extremities without cyanosis, or edema. NEURO: Alert & Oriented x4 to person, place, time, situation. Moves all ext x4 PSYCH: Appropriate mood and affect. Pt update on day of discharge Patient is dressed and states she is ready to go home. Hospital Course This 66-year-old female admitted with sepsis secondary to pneumonia. Evaluation and treatment course detailed below: Sepsis Sepsis secondary to pneumonia: The patient was treated with IV antibiotics, supportive care with IV fluid and subretinal oxygen. She improved quickly. She is discharged on oral antibiotics to complete the course of treatment.. Pneumonia Chest x-ray image reviewed by me and concur with radiologist read. Bilateral parenchymal process. Based on the clinical picture, more consistent with pneumonia rather than CHF. - Antibiotics as above Urinary legionella and strep pneumo antigens negative - Patient was downgraded to room air by the time of discharge. Acute encephalopathy Likely related to sepsis/pneumonia. Adverse effects from medications also possibility. I note the patient home medications include Klonopin and Flexeril. Head CT unremarkable. No focal neurological deficits. - Treated for sepsis as above. Encephalopathy resolved. Patient had a persistent headache. This was successfully treated with triptan and naproxen. Hypothyroidism Continue Synthroid. GERD (gastroesophageal reflux disease) Continue PPI Hyperlipidemia Continue statin. Beta thalassemia H&H stable Pt Condition on Discharge: Good Discharge Disposition: Discharge Home Discharge Time: > 30 minutes Discharge Instructions DIET: Follow Instructions for: As Tolerated, No Restrictions Activities you can perform: Regular-No Restrictions Follow up Referrals: PCP Follow-up - 1 Week New Medications: Azithromycin (Azithromycin) 250 Mg Tab 500 MG PO Q24H #3 TAB Cefuroxime (Cefuroxime) 500 Mg Tab 500 MG PO Q12HR #14 TAB Continued Medications: Cholecalciferol (Vitamin D3) 5,000 Unit Tab 5000 UNITS PO DAILY Nutritional Supplement #1 Ref 0 BOTTLE Cimetidine (Tagamet Hb) 200 Mg Tab 800 MG PO BID Heartburn Management Ref 0 TAB Clonazepam (Klonopin) 0.5 Mg Tab 0.5 MG PO BID #60 Ref 0 TAB Cyclobenzaprine (Flexeril) 10 Mg Tab 10 MG PO TID Muscle Spasm #90 Ref 0 TAB Levothyroxine (Levothyroxine) 125 Mcg Tab 125 MCG PO DAILY Thyroid #30 Ref 0 TAB Omeprazole (Prilosec) 20 Mg Cap 40 MG PO BID #30 Ref 0 CAP Pravastatin (Pravastatin) 40 Mg Tab 40 MG PO DAILY Cholesterol Management #30 Ref 0 TAB Vitamin A (Vitamin A) 8,000 Unit Tab 8000 UNITS PO DAILY Nutritional Supplement Ref 0 TAB Kathy Noble MD November 19, 2016 14:02
== END 2016-11-19 14:59 | disposition home or self-care (01) | DRG 871 ==
LOC: NEPC 04:48 → NEDA 07:45 → HCIS 14:35 → N04A 11-17 18:12
PROVIDERS: ADMIT Family Medicine; ATTEND Family Medicine
DX: A41.9 Sepsis, unspecified organism (principal); J18.9 Pneumonia, unspecified organism; G93.40 Encephalopathy, unspecified; D56.1 Beta thalassemia; R09.02 Hypoxemia; K21.9 Gastro-esophageal reflux disease without esophagitis; I10 Essential (primary) hypertension; G89.29 Other chronic pain; E03.9 Hypothyroidism, unspecified; M54.2 Cervicalgia; Z98.1 Arthrodesis status; E78.5 Hyperlipidemia, unspecified; R51 Headache
CPT/HCPCS: 70450; 71010; 80048; 80053; 81001; 82550; 82552; 83605; 83735; 83880; 84484; 85025; 85027; 86140; 87040; 87449; 87804; 93005; 94150; 94620; 94664; 96365; 96375; J0456; J0696; J0780; J1644; J2405; J7030; J7050; P9612